=== PATIENT | female | born 1955 | race Caucasian/White ===

== ENCOUNTER 2017-02-16 23:14 | Emergency (ER) | payer OTHER ==
[~2017-02-16] VITALS: Ht 162.6 cm; Wt 65.8 kg
--- NOTE | 2017-02-16 23:27 | ED SYNCOPE COMPLAINT ---
History of Present Illness General Chief Complaint: Syncope and Near-Syncope Stated Complaint: BIBA SYNCOPE Source: patient, EMS Exam Limitations: no limitations Vital Signs & Intake/Output Vital Signs & Intake/Output Vital Signs Date Time Temp Pulse Resp B/P Pulse O2 O2 Flow FiO2 Ox Delivery Rate 02/17 0143 96.9 72 18 107/52 100 Room Air / 0057 95 101/57 / 0018 Room Air 02/16 2324 96.7 73 18 113/55 100 Room Air ED Intake and Output 02/17 0000 02/16 1200 Intake Total Output Total Balance Patient 145 lb Weight Allergies Coded Allergies: hydroxyzine (From [facility]) (UNKNOWN 03/22/16) morphine (UNKNOWN 03/22/16) Reconcile Medications No Known Home Medications Triage Note: PT BIBA S/P SYNCOPAL EPISODE. PER PT, SHE HAD BEEN EXPERIENCING DIARRHEA FROM [place] (TAKEN FOR ANXIETY), PT TOOK 4 FIBER GUMMIES AND IMMODIUM. PT HAD 3/10 ABDOMINAL CRAMPING. PT THEN WENT TO THE BATHROOM, WAS FOUND ON THE FLOOR BY DAUGHTER. ?HEADSTRIKE, DOES NOT REMEMBER WHAT HAPPENED. ONLY COMPLAINT IS STOMACH CRAMPING. Triage Nurses Notes Reviewed? yes Timing: single episode today Precipitating Factors: ABDOMINAL CRAMPING, DIARRHEA Context: SEE HPI Loss of Consciousness: brief (seconds) Associated Symptoms: weakness HPI: This is a 61-year-old female with history of CVA on baby aspirin who presents via EMS from home for chief complaint of syncopal episode. Patient was having the diarrhea and abdominal cramping all day long which she believes is secondary to her Zoloft. She has been on it since September of last year. Recently increased her dose from 150-200 mg. She states that she was in the bathroom this evening and was starting to have abdominal cramping try to notify her daughter. Daughter was upstairs in her bedroom and found her mother face down on the bathroom floor. She was dazed for a minute but then came back to normal. She was incontinent of urine. She denies any chest pain or shortness of breath. No headache or blurred vision. She states this is nothing similar to her previous stroke. She has used frequent episodes of syncope as a child and an adult which was all a result of her celiac and gluten intolerance. She said after she changed her diet she stopped having these episodes. Past History Travel History Traveled to [place] past 21 day No Medical History Any Pertinent Medical History? see below for history Neurological: CVA EENT: NONE Cardiovascular: NONE Respiratory: SYNCOPE Gastrointestinal: CELIAC Hepatic: NONE Renal: NONE Musculoskeletal: NONE Psychiatric: NONE Endocrine: NONE Blood Disorders: NONE Cancer(s): NONE Other Medical Hx: LUPUS History of CDIFF: No Surgical History Surgical History: RHINOPLASTOMY, OVARIAN CYSTECTOMY Psychosocial History What is your primary language Uzbek Tobacco Use: Never used ETOH Use: denies use Family History Hx Contributory? No Review of Systems Review of Systems Constitutional: Denies: chills, fever. EENTM: Reports: no symptoms. Respiratory: Denies: cough, short of breath. Cardiovascular: Reports: syncope. Denies: chest pain, palpitations, peripheral edema. GI: Reports: abdominal pain, bloating. Genitourinary: Reports: no symptoms. Musculoskeletal: Reports: no symptoms. Skin: Reports: no symptoms. Neurological/Psychological: Denies: anxiety, headache. All Other Systems: Reviewed and Negative Physical Exam Physical Exam General Appearance: well developed/nourished, alert, awake, anxious, mild distress Head: atraumatic, normal appearance Eyes: Bilateral: normal appearance, PERRL, EOMI. Ears, Nose, Throat: normal pharynx, hearing grossly normal Neck: normal inspection, supple, full range of motion Respiratory: normal breath sounds, chest non-tender, no respiratory distress Cardiovascular: regular rate/rhythm Gastrointestinal: normal bowel sounds, soft, tenderness (MILD PERIUMBILICAL) Back: normal inspection Extremities: normal inspection, normal capillary refill, normal range of motion Psychiatric: awake, alert, oriented x 3 Cranial Nerves: normal hearing, normal speech, PERRL Coordination/Gait: normal finger to nose, normal gait Motor/Sensory: no motor/sensory deficits Skin: intact, normal color, warm/dry Core Measures ACS in differential dx? No CVA/TIA Diagnosis: No Severe Sepsis Present: No Septic Shock Present: No Progress Differential Diagnosis: AMI, aortic dissection, orthostatic syncope, pulmonary embolus, TIA/CVA Plan of Care: Orders Procedure Date/time Status MISTAKE 02/16 2342 Active Telemetry/Punch Machine Hand 02/16 2342 Active TROPONIN LEVEL 02/16 2333 Complete PARTIAL THROMBOPLASTIN TIME 02/16 2333 Complete PROTHROMBIN TIME 02/16 2333 Complete MAGNESIUM 02/16 2333 Complete COMPREHENSIVE METABOLIC PANEL 02/16 2333 Complete CBC WITHOUT DIFFERENTIAL 02/16 2333 Complete EKG 02/16 2330 Active Current Medications Sig/Luz Start time Last Medication Dose Stop Time Status Admin Sodium Chloride 500 ML BOLUS ONE 02/16 2345 CAN (Normal Saline 0.9%) 02/174 Laboratory Tests 02/16/170: Anion Gap 5, Estimated GFR > 60, BUN/Creatinine Ratio 24.3, Glucose 97, Calcium 9.5, Magnesium 1.7, Total Bilirubin 0.6, AST 132 H, ALT 92 H, Alkaline Phosphatase 84, Troponin I < 0.01, Total Protein 6.4, Albumin 3.9, Globulin 2.5, Albumin/Globulin Ratio 1.6, PT 11.3, INR 1.08, APTT 28, CBC w Diff NO MAN DIFF REQ, RBC 4.62, MCV 80.5 L, MCH 26.6 L, RDW 12.6, MPV 8.1, Gran % 78.0 H, Lymphocytes % 16.4 L, Monocytes % 4.7, Eosinophils % 0.7, Basophils % 0.2, Absolute Granulocytes 7.2 H, Absolute Lymphocytes 1.5, Absolute Monocytes 0.4, Absolute Eosinophils 0.1, Absolute Basophils 0, PUBS MCHC 33.0 Workup negative, patient feeling much improved. not dizzy with ambulation. She does not want to stay overnight. She states that she has history of similar episodes in the past. Neuro examination intact. (MILI OSORIO,ANGELES) Diagnostic Imaging: Viewed by Me: CT Scan. Discussed w/RAD: CT Scan. Radiology Impression: PATIENT: JUAN MIGUEL GAMING PRESENT AGE: 61 PATIENT ACCOUNT NO: [id number] : 57 LOCATION: [facility] ORDERING PHYSICIAN: ANGELES GARCES MD SERVICE DATE: 02/16/17 EXAM TYPE: CAT - CT HEAD WO IV CONTRAST EXAMINATION: CT HEAD WITHOUT CONTRAST CLINICAL INFORMATION: Fall. COMPARISON: CT head 03/22/2016, CT head angiogram 03/22/2016 TECHNIQUE: Contiguous axial imaging was performed from the skull base to vertex without intravenous administration of contrast. DLP: 529.16 mGy-cm FINDINGS: There is encephalomalacia involving the right basal ganglia and the right parietal lobe from old right MCA territory infarct. There is no evidence of acute intracranial hemorrhage or acute territorial infarction. No abnormal mass effect or midline shift is seen. Anderson to white matter differentiation is well preserved. No extra- axial fluid collections are identified. The osseous structures and soft tissues are normal. The mastoid air cells and visualized portions of the paranasal sinuses are well aerated. IMPRESSION: 1. No acute intracranial pathology. 2. Old right MCA territory infarct. DICTATED BY: LUIS ESCOTO MD DATE/TIME DICTATED:04/30 RESPONDER:DANDRE DATE/TIME TRANSCRIBED:02/17/17104 CONFIDENTIAL, DO NOT COPY WITHOUT APPROPRIATE AUTHORIZATION. <Electronically signed in Other Vendor System> SIGNED BY: LUIS ESCOTO MD 02/17/174 Initial ED EKG: NSR Rhythm Strip: normal sinus rhythm Departure Departure Time of Disposition: 141 Disposition: HOME OR SELF CARE Condition: Stable Clinical Impression Primary Impression: Vasovagal syncope Secondary Impressions: Transaminitis Referrals: ISABEL CANO MD (PCP/Family) Additional Instructions: Drink plenty of fluids. Please follow-up with her primary care doctor regarding the visit. Take a copy of your liver function tests review as you are on a statin for your cholesterol. Return to the ER for any changing or worsening symptoms. Departure Forms: Customer Survey General Discharge Information Prescriptions: Current Visit Scripts No Known Home Medications
[2017-02-17 00:24] LABS: PT 11.3 SEC (9.4-12.5); PTT 28 SEC (25-37)
[2017-02-17 00:26] LABS: ABSOLUTE BASOPHIL COUNT 0 /CUMM (0.0-0.2); ABSOLUTE EOSINOPHIL COUNT 0.1 /CUMM (0.0-0.7); ABSOLUTE GRANULOCYTE CT 7.2 /CUMM (1.4-6.5); ABSOLUTE LYMPH COUNT 1.5 /CUMM (1.2-3.4); ABSOLUTE MONOCYTE COUNT 0.4 /CUMM (0.10-0.60); BASOPHIL % 0.2 % (0.0-2.0); EOSINOPHIL % 0.7 % (0-5); HEMATOCRIT 37.2 % (37-47); MEAN CORPUSCULAR HGB 26.6 PG (27.0-31.0); MEAN CORPUSCULAR VOLUME 80.5 FL (81.0-99.0); MEAN PLATELET VOLUME 8.1 FL (7.4-10.4); PLATELET COUNT 224 /CUMM (130-400); RBC DISTRIBUTION WIDTH 12.6 % (11.5-14.5); RED BLOOD CELL CT 4.62 /CUMM (4.20-5.40); WHITE BLOOD CELL COUNT 9.2 /CUMM (4.8-10.8)
--- NOTE | 2017-02-17 01:14 | CT SCAN REPORT ---
EXAMINATION: CT HEAD WITHOUT CONTRAST CLINICAL INFORMATION: Fall. COMPARISON: CT head 03/22/2016, CT head angiogram 03/22/2016 TECHNIQUE: Contiguous axial imaging was performed from the skull base to vertex without intravenous administration of contrast. DLP: 529.16 mGy-cm FINDINGS: There is encephalomalacia involving the right basal ganglia and the right parietal lobe from old right MCA territory infarct. There is no evidence of acute intracranial hemorrhage or acute territorial infarction. No abnormal mass effect or midline shift is seen. Anderson to white matter differentiation is well preserved. No extra-axial fluid collections are identified. The osseous structures and soft tissues are normal. The mastoid air cells and visualized portions of the paranasal sinuses are well aerated. IMPRESSION: 1. No acute intracranial pathology. 2. Old right MCA territory infarct.
[2017-02-17 01:43] VITALS: BP 107/52
== END 2017-02-17 01:47 ==
LOC: ERH 23:14
PROVIDERS: Emergency Medicine
DX: R55 Syncope and collapse (principal); R74.0 Nonspecific elevation of levels of transaminase and lactic acid dehydrogenase [LDH]
CPT/HCPCS: 93005; 93010; 96360; 96361